=== PATIENT | male | born 1985 | race Caucasian/White ===

== ENCOUNTER 2016-07-12 06:17 | Emergency (ER) | payer SELFPAY ==
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
[2016-07-12] MEDS ORDERED: Bacitracin/Neomycin/Polymyxin B Oint 0.9 GM U/D Packet ONE (07:14)
[2016-07-12 07:23] LABS: CHLORIDE,CL 102 mmol/L (98-107); SODIUM,NA 139 mmol/L (136-145)
[2016-07-12 08:42] VITALS: BP 126/70
== END 2016-07-12 08:14 | disposition home or self-care (01) ==
LOC: LL.ED 06:17
DX: S06.0X0A Concussion without loss of consciousness, initial encounter (principal); S01.21XA Laceration without foreign body of nose, initial encounter; S13.4XXA Sprain of ligaments of cervical spine, initial encounter; F10.120 Alcohol abuse with intoxication, uncomplicated; F17.210 Nicotine dependence, cigarettes, uncomplicated; Z79.899 Other long term (current) drug therapy; W22.09XA Striking against other stationary object, initial encounter; V48.4XXA Person boarding or alighting a car injured in noncollision transport accident, initial encounter
CPT/HCPCS: 12011; 36415; 80053; 80305; 85025; 99283; 99284; G0480

== ENCOUNTER 2016-09-11 09:37 | Emergency (ER) | payer SELFPAY ==
[2016-09-11 09:43] VITALS: BP 108/85
--- NOTE | 2016-09-11 10:36 | EDM.PDOC ---
ED HPI GENERAL MEDICAL PROBLEM - General Chief Complaint: General Stated Complaint: gum pain Time Seen by Provider: 09/11/16 10:05 Source of Information: Reports: Patient History Limitations: Reports: No Limitations - History of Present Illness INITIAL COMMENTS - FREE TEXT/NARRATIVE: The patient presents with complaint of pain after several pulled teeth on , 09/09/2016 at [facility]. He had 5 teeth pulled from the bottom, 4 incisors and 1 bicuspid and 2 molars pulled from the right maxilla. He was prescribed [place] 5/325 mg tabs and has been taking them every 3 hours and ibuprofen every 6 hours. He denies fever, chills, or bodyaches. He denies other symptoms or complaints. 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 Oral/Mouth Pain Score (Numeric/FACES): 10 - Related Data Allergies Allergy/AdvReac Type Severity Reaction Status Date / Time No Known Allergies Allergy Verified 09/11/16 09:43 Home Meds: Home Meds Acetaminophen [Tylenol Extra Strength] 500 mg PO Q6H PRN 07/12/16 [History] Citalopram Hydrobromide [Celexa] 40 mg PO DAILY 07/12/16 [History] Ibuprofen 600 mg PO Q4H PRN 07/12/16 [History] busPIRone [Buspar] 10 mg PO TID 07/12/16 [History] Hydrocodone/Acetaminophen [Hydrocodon-Acetaminophen 5-325] 1 each PO 09/11/16 [ History] Past Medical History HEENT History: Reports: Impaired Vision, Other (See Below) Other HEENT History: poor teeth Cardiovascular History: Reports: Heart Murmur, Other (See Below) Other Cardiovascular History: hrt murmur congenital, enlarged heart Respiratory History: Reports: Other (See Below) Other Respiratory History: start of COPD Gastrointestinal History: Reports: Irritable Bowel Syndrome Musculoskeletal History: Reports: Back Pain, Chronic, Fracture, Other (See Below ) Other Musculoskeletal History: fractures to both hands, broken tail bone Psychiatric History: Reports: ADHD, Anxiety, Depression Dermatologic History: Reports: Other (See Below) Other Dermatologic History: rash to trunk dry will flare to redness, and itching - Past Surgical History HEENT Surgical History: Reports: Eye Surgery, Myringotomy w Tube(s), Tonsillectomy, Other (See Below) Other HEENT Surgeries/Procedures: all teeth removed and dentures placed on 09/11 Social & Family History - Tobacco Use Smoking Status *Q: Current Every Day Smoker Years of Tobacco use: 14 Packs/Tins Daily: 0.5 Used Tobacco, but Quit: No Second Hand Smoke Exposure: No - Caffeine Use Caffeine Use: Reports: Soda - Alcohol Use Days Per Week of Alcohol Use: 2 Number of Drinks Per Day: 2 Total Drinks Per Week: 4 - Recreational Drug Use Recreational Drug Use: Yes Recreational Drug Type: Reports: Marijuana/Hashish Recreational Drug Use Frequency: Daily ED ROS GENERAL - Review of Systems Review Of Systems: ROS reveals no pertinent complaints other than HPI. ED EXAM, GENERAL - Physical Exam Exam: See Below Exam Limited By: No Limitations General Appearance: Alert, WD/WN, No Apparent Distress Eye Exam: Bilateral Eye: EOMI, Normal Inspection, PERRL Ears: Normal External Exam, Normal Canal, Hearing Grossly Normal, Normal TMs Ear Exam: Bilateral Ear: Auricle Normal, Canal Normal, TM normal Nose: Normal Inspection, Normal Mucosa, No Blood Throat/Mouth: Normal Lips, Normal Oropharynx, Normal Voice, Other (Inferior gums with a few dissolvable sutures in place and some apparently coagulated tissue with some moderate erythema but no purulent drainage. The right maxillary gums with a few dissolvable sutures in place and no erythema. Has dentures in place. ) Head: Atraumatic, Normocephalic Neck: Normal Inspection, Supple, Non-Tender, Full Range of Motion Respiratory/Chest: No Respiratory Distress, Lungs Clear, Normal Breath Sounds, No Accessory Muscle Use Cardiovascular: Normal Peripheral Pulses, Regular Rate, Rhythm, No Edema, No Gallop, Systolic Murmur (Grade 2/6 systolic murmur heard. ) Peripheral Pulses: 2+: Radial (L), Radial (R) GI/Abdominal: Normal Bowel Sounds, Soft, Non-Tender, No Organomegaly, No Distention Back Exam: Normal Inspection, Full Range of Motion. No: CVA Tenderness (L), CVA Tenderness (R), Paraspinal Tenderness, Vertebral Tenderness Extremities: Normal Inspection, Normal Range of Motion, Non-Tender, No Pedal Edema, Normal Capillary Refill Neurological: Alert, Oriented, CN II-XII Intact, Normal Cognition, Normal Gait, Normal Reflexes, No Motor/Sensory Deficits Skin Exam: Warm, Dry, Intact, Normal Color, No Rash Lymphatic: No Adenopathy Course - Vital Signs Last Recorded V/S: Last Vital Signs Temp 36.9 C 09/11/16 09:37 Pulse 64 09/11/16 09:37 Resp 16 09/11/16 09:37 BP 108/85 09/11/16 09:37 Pulse Ox 100 09/11/16 09:37 Departure - Departure Time of Disposition: 10:36 Disposition: Home, Self-Care 01 Clinical Impression: Cellulitis of gingiva, Status post tooth extraction - Discharge Information Forms: ED Department Discharge - Assessment/Plan Assessment:: Status post multiple teeth extraction with dentures in place. Cellulitis of gingiva. Plan: 1. Prescription for Augmentin 875/125 mg tabs, 1 tab PO BID, 10 days, 0 refills. 2. Prescription for Percocet 5/325 mg tabs, 1 tab every 4-6 hours PRN pain, 10 tabs, 0 refills. 3. OTC ibuprofen 800 mg every 6 hours for pain and anti-inflammatory effect. 4. Follow up with dentist DOM.
== END 2016-09-11 10:55 | disposition home or self-care (01) ==
LOC: LL.ED 09:37
DX: K12.2 Cellulitis and abscess of mouth (principal); K08.409 Partial loss of teeth, unspecified cause, unspecified class; H54.7 Unspecified visual loss; J44.9 Chronic obstructive pulmonary disease, unspecified; F17.210 Nicotine dependence, cigarettes, uncomplicated; F41.9 Anxiety disorder, unspecified; F32.9 Major depressive disorder, single episode, unspecified; F90.9 Attention-deficit hyperactivity disorder, unspecified type; Z79.899 Other long term (current) drug therapy; Z96.22 Myringotomy tube(s) status; Z98.890 Other specified postprocedural states
CPT/HCPCS: 99282; 99283

== ENCOUNTER 2018-11-20 20:28 | Emergency (ER) | payer SELFPAY ==
[2018-11-20 21:12] LABS: CHLORIDE,CL 106 mmol/L (98-107); SODIUM,NA 142 mmol/L (136-145)
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
== END 2018-11-20 22:45 | disposition home or self-care (01) ==
LOC: LL.ED 20:28
DX: S06.0X9A Concussion with loss of consciousness of unspecified duration, initial encounter (principal); S02.2XXA Fracture of nasal bones, initial encounter for closed fracture; S00.83XA Contusion of other part of head, initial encounter; S00.12XA Contusion of left eyelid and periocular area, initial encounter; F17.210 Nicotine dependence, cigarettes, uncomplicated; Y04.8XXA Assault by other bodily force, initial encounter
CPT/HCPCS: 36415; 70450; 70486; 72125; 80053; 85025; 99284; 99285-25; G0390; G0480